=== PATIENT | female | born 1990 | race Caucasian/White ===

== ENCOUNTER 2023-10-29 14:47 | Emergency (ER) | payer OTHER ==
[~2023-10-29] VITALS: Ht 165.1 cm; Wt 53.5 kg
[2023-10-29 15:50] VITALS: BP 122/85; TEMP 98.2; O2SAT 99
== END 2023-10-29 15:52 | disposition home or self-care (01) ==
LOC: ER 14:51
DX: M79.601 Pain in right arm (principal); Z88.1 Allergy status to other antibiotic agents